=== PATIENT | female | born 1930 | race Caucasian/White ===

== ENCOUNTER 2017-03-29 11:10 | Inpatient (IN) | payer MEDICARE ==
[~2017-03-29] VITALS: Ht 167.6 cm; Wt 65.6 kg
[~2017-03-29 11:10] MED LIST: ASPI-1181 PO; ATOR10TA69 PO; BIOT5000 PO; CHOL50004 PO; CYAN250010 PO; FERR-82 PO; FLUT1AER IH; GLUC-114 PO; LEVO50TA6 PO; MELA5TAB14 PO; METO-408 PO; OLME40TA8 PO; TIOT4MIS2 IH; UBID200C18 PO; VITA400C25 PO
[2017-03-29 11:41] LABS: BASOPHILS % (AUTO) 0.4 % (0.0-5.0); EOSINOPHILS % (AUTO) 1.7 % (0.0-8.0); LYMPHOCYTES % (AUTO) 22.5 % (21.0-51.0); MEAN CORPUSCULAR HEMOGLOBIN 29.6 pg (27.0-33.0); MEAN CORPUSCULAR HGB CONC 33.4 g/dL (32.0-36.0); MEAN CORPUSCULAR VOLUME 88.7 fL (79-99); MONOCYTES % (AUTO) 9.9 % (3.0-13.0); NEUTROPHILS % (AUTO) 65.5 % (40.0-77.0); NUCLEATED RED BLOOD CELLS 0.1 % (0.0-0.19); PLATELET COUNT (AUTO) 216 K/uL (130-400); RED BLOOD CELL COUNT(AUTO) 4.74 MIL/uL (4.00-5.50); RED CELL DISTRIBUTION WIDTH 15.6 % (11.0-15.5); WHITE BLOOD COUNT (AUTO) 5.8 K/uL (4.8-10.8)
[2017-03-29 11:48] LABS: CREATININE 1.1 mg/dL (0.5-1.5); POTASSIUM 4.3 mmol/L (3.5-5.1)
[2017-03-29] MEDS ORDERED: SODIUM CHLORIDE 0.9% 1000ML 1,000 ML IV ONE ×3 (11:52→18:03)
[2017-03-29] MEDS ORDERED: ONDANSETRON HCL 4 MG/2 ML VIAL ONE (11:52)
[2017-03-29 11:56] LABS: INR 1.06 (0.85-1.15); PARTIAL THROMBOPLASTIN TIME 30.6 SEC (26.3-35.5); PROTHROMBIN TIME 11.1 SEC (9.6-11.6)
[2017-03-29 12:02] LABS: ALBUMIN 3.7 g/dL (3.5-5.0); BILIRUBIN,TOTAL 0.5 mg/dL (0.2-1.0); CREATINE KINASE MB 1.1 ng/mL (0.5-3.6); TOTAL PROTEIN, SERUM 6.5 g/dL (6.0-8.3)
[2017-03-29 12:06] LABS: B-TYPE NATRIURETIC PEPTIDE 45 pg/mL (0-100)
[2017-03-29 13:04] LABS: APPEARANCE,URINE Clear (CLEAR); BILIRUBIN,URINE Negative (NEGATIVE); COLOR,URINE Yellow (YELLOW); GLUCOSE, URINE (UA) Negative (NEGATIVE); KETONES,URINE Negative (NEGATIVE); LEUKOCYTE ESTERASE ,URINE Trace (NEGATIVE); NITRATE,URINE Negative (NEGATIVE); OCCULT BLOOD,URINE Negative (NEGATIVE); PROTEIN,URINE Trace (NEGATIVE); UROBILINOGEN,URINE 0.2 mg/dL (0.2-1.0)
[2017-03-29] MEDS ORDERED: CEFTRIAXONE SODIUM 1 GM ONE (13:09)
[2017-03-29] MEDS ORDERED: AZITHROMYCIN 500MG+NS 250ML 250 ML IV ONE (13:16)
[2017-03-29] MEDS ORDERED: IPRATROPIUM/ALBUTEROL SULFATE 3 ML SOLUTION IH ONE (13:37)
[2017-03-29 13:38] LABS: BACTERIA,URINE Rare /HPF (None Seen); MUCUS,URINE Rare LPF (None Seen); RBC,URINE None Seen /HPF (0-1); SQUAMOUS EPITHELIAL CELL,UR Few /LPF (0-2); WBC,URINE 0-1 /HPF (0-1)
[2017-03-29 18:30] VITALS: BP 164/73
[2017-03-29] MEDS ORDERED: SODIUM CHLORIDE 0.9% 1000ML 1,000 ML IV SCH (19:00)
[2017-03-29] MEDS ORDERED: LUTE20CA PO (21:25)
[2017-03-29] MEDS ORDERED: VIT1CAPS5 PO (21:25)
[2017-03-29] MEDS ORDERED: AMIO200T2 PO (21:25)
[2017-03-29] MEDS: IPRATROPIUM/ALBUTEROL SULFATE 3 ML SOLUTION IH SCH (22:02)
[2017-03-29] MEDS ORDERED: BENZONATATE 100 MG CAPSULE PO ONE (22:39)
[2017-03-29] MEDS: ACETAMINOPHEN 325 MG TAB PO PRN (22:42)
[2017-03-29] MEDS: BENZONATATE 100 MG CAPSULE PO PRN (23:27)
[2017-03-29 23:39] VITALS: BP 141/50
[2017-03-30] MEDS: IPRATROPIUM/ALBUTEROL SULFATE 3 ML SOLUTION IH SCH ×7 (02:30→21:59)
[2017-03-30] MEDS ORDERED: ACETAMINOPHEN 325 MG TAB PO PRN (03:45)
[2017-03-30] MEDS ORDERED: HYDRALAZINE HCL 20 MG/ML VIAL IV PRN (03:45)
[2017-03-30] MEDS ORDERED: AZITHROMYCIN 500MG+NS 250ML 250 ML IV SCH (03:45)
[2017-03-30] MEDS: SODIUM CHLORIDE 0.9% 1000ML 1,000 ML IV SCH ×3 (03:45→23:38)
[2017-03-30] MEDS ORDERED: CEFTRIAXONE 1GM/D5W 50ML 50 ML IV SCH (03:45)
[2017-03-30] MEDS ORDERED: GUAIFENESIN-CODEINE 5 ML SYRUP PO ONE (04:00)
[2017-03-30 04:23] VITALS: BP 118/45
[2017-03-30] MEDS ORDERED: APIX5TAB PO (07:07)
[2017-03-30] MEDS: LEVOTHYROXINE 50 MCG TABLET PO SCH (07:10)
[2017-03-30 08:05] VITALS: BP 134/56
[2017-03-30] MEDS ORDERED: LEVOTHYROXINE 50 MCG TABLET PO SCH (09:00)
[2017-03-30] MEDS: LUTEIN 20 MG PO SCH (09:00)
[2017-03-30] MEDS: **HM** CO Q-10 200MG PO SCH (09:00)
[2017-03-30] MEDS: **HM** TOPROL XL 25MG PO SCH ×2 (09:00→20:20)
[2017-03-30] MEDS: PANTOPRAZOLE SODIUM 40 MG TABLET.DR PO SCH (09:09)
[2017-03-30] MEDS: CEFTRIAXONE SODIUM 1 GM IVP SCH (09:09)
[2017-03-30] MEDS: LOSARTAN 100 MG TABLET PO SCH (09:09)
[2017-03-30] MEDS: AMIODARONE HCL 200 MG TABLET PO SCH (09:11)
[2017-03-30] MEDS: BENZONATATE 100 MG CAPSULE PO PRN ×2 (10:28→20:19)
[2017-03-30 11:59] VITALS: BP 133/52
[2017-03-30] MEDS: IPRATROPIUM 0.5 MG/2.5 ML INH IH SCH ×2 (12:00→16:44)
[2017-03-30] MEDS: AZITHROMYCIN 500MG+NS 250ML 250 ML IV SCH (12:43)
[2017-03-30] MEDS: GUAIFENESIN-DM 200/20 MG 10 ML PO PRN ×2 (14:08→20:18)
[2017-03-30] MEDS: BENZOCAINE/MENTH/CETYLPYRD CL 1 EACH LOZENGE MM PRN ×2 (15:24→21:33)
[2017-03-30 16:40] VITALS: BP 101/57
[2017-03-30] MEDS: LACTULOSE 20 GM/30 ML UDCUP PO PRN ×2 (17:30→23:37)
[2017-03-30 20:07] VITALS: BP 133/56
[2017-03-30] MEDS: FERROUS SULFATE 325 MG TABLET.DR PO SCH (20:19)
[2017-03-30] MEDS: ASPIRIN 81 MG EC TAB PO SCH (20:19)
[2017-03-30] MEDS: BREO ELLIPTA IH SCH (20:19)
[2017-03-30] MEDS: METOPROLOL TARTRATE 25 MG TAB PO SCH (20:19)
[2017-03-30] MEDS: ATORVASTATIN CALCIUM 10 MG TABLET PO SCH (20:19)
[2017-03-30] MEDS: **HM** MELATONIN 5MG PO SCH (20:20)
[2017-03-30] MEDS: ACETAMINOPHEN-CODEINE 300/30MG TAB PO PRN (21:38)
[2017-03-30] MEDS: ONDANSETRON HCL 4 MG/2 ML VIAL IV PRN (21:41)
[2017-03-30] MEDS ORDERED: ACETAMINOPHEN-CODEINE 300/30MG TAB PO PRN (23:30)
[2017-03-31] VITALS (8 sets, daily range): BP systolic 118–183; BP diastolic 52–86
[2017-03-31] MEDS: IPRATROPIUM/ALBUTEROL SULFATE 3 ML SOLUTION IH SCH ×6 (02:00→21:40)
[2017-03-31] MEDS: ONDANSETRON HCL 4 MG/2 ML VIAL IV PRN ×3 (04:27→21:49)
[2017-03-31] MEDS ORDERED: MORPHINE SULFATE 2 MG/ML 1ML SYG ONE (05:22)
[2017-03-31 05:28] LABS: BASOPHILS % (AUTO) 0.5 % (0.0-5.0); EOSINOPHILS % (AUTO) 2.1 % (0.0-8.0); LYMPHOCYTES % (AUTO) 26.4 % (21.0-51.0); MEAN CORPUSCULAR HEMOGLOBIN 30.3 pg (27.0-33.0); MEAN CORPUSCULAR VOLUME 89.4 fL (79-99); NUCLEATED RED BLOOD CELLS 0.1 % (0.0-0.19); PLATELET COUNT (AUTO) 199 K/uL (130-400); RED BLOOD CELL COUNT(AUTO) 3.91 MIL/uL (4.00-5.50); RED CELL DISTRIBUTION WIDTH 15.8 % (11.0-15.5)
[2017-03-31] MEDS ORDERED: MORPHINE SULFATE 2 MG/ML 1ML SYG IVP ONE (05:30)
[2017-03-31 05:44] LABS: CREATININE 0.8 mg/dL (0.5-1.5); POTASSIUM 3.5 mmol/L (3.5-5.1)
[2017-03-31] MEDS: IPRATROPIUM 0.5 MG/2.5 ML INH IH SCH ×4 (06:00→18:00)
[2017-03-31] MEDS: SODIUM CHLORIDE 0.9% 1000ML 1,000 ML IV SCH ×2 (06:25→15:45)
[2017-03-31] MEDS: LEVOTHYROXINE 50 MCG TABLET PO SCH ×2 (07:30→09:21)
[2017-03-31] MEDS: **HM** CO Q-10 200MG PO SCH (09:00)
[2017-03-31] MEDS: **HM** TOPROL XL 25MG PO SCH ×2 (09:00→19:36)
[2017-03-31] MEDS: LUTEIN 20 MG PO SCH (09:00)
[2017-03-31] MEDS: CEFTRIAXONE SODIUM 1 GM IVP SCH (09:20)
[2017-03-31] MEDS: LOSARTAN 100 MG TABLET PO SCH (09:21)
[2017-03-31] MEDS: AMIODARONE HCL 200 MG TABLET PO SCH (09:21)
[2017-03-31] MEDS: PANTOPRAZOLE SODIUM 40 MG TABLET.DR PO SCH (09:21)
[2017-03-31] MEDS: ACETAMINOPHEN-CODEINE 300/30MG TAB PO PRN ×2 (09:21→15:47)
[2017-03-31] MEDS: METOPROLOL TARTRATE 25 MG TAB PO SCH ×2 (09:21→19:34)
[2017-03-31] MEDS: AZITHROMYCIN 500MG+NS 250ML 250 ML IV SCH (11:55)
[2017-03-31] MEDS: GUAIFENESIN-DM 200/20 MG 10 ML PO PRN ×2 (11:55→18:45)
[2017-03-31] MEDS: BENZONATATE 100 MG CAPSULE PO PRN ×2 (13:36→23:10)
[2017-03-31] MEDS ORDERED: SODIUM CHLORIDE 45 ML SPRY NS PRN (14:45)
[2017-03-31] MEDS: ASPIRIN 81 MG EC TAB PO SCH (19:34)
[2017-03-31] MEDS: ATORVASTATIN CALCIUM 10 MG TABLET PO SCH (19:34)
[2017-03-31] MEDS: FERROUS SULFATE 325 MG TABLET.DR PO SCH (19:34)
[2017-03-31] MEDS: APIXABAN 5 MG TABLET PO SCH (19:34)
[2017-03-31] MEDS: BREO ELLIPTA IH SCH (19:35)
[2017-03-31] MEDS: ACETAMINOPHEN 325 MG TAB PO PRN (19:35)
[2017-03-31] MEDS: **HM** MELATONIN 5MG PO SCH (19:36)
[2017-04-01] MEDS: IPRATROPIUM/ALBUTEROL SULFATE 3 ML SOLUTION IH SCH ×6 (02:00→22:00)
[2017-04-01] MEDS: BENZOCAINE/MENTH/CETYLPYRD CL 1 EACH LOZENGE MM PRN (02:54)
[2017-04-01 03:00] VITALS: BP 142/63
[2017-04-01] MEDS: GUAIFENESIN-DM 200/20 MG 10 ML PO PRN ×2 (04:02→16:29)
[2017-04-01] MEDS: LEVOTHYROXINE 50 MCG TABLET PO SCH (05:50)
[2017-04-01] MEDS: SODIUM CHLORIDE 0.9% 1000ML 1,000 ML IV SCH ×2 (05:51→20:28)
[2017-04-01] MEDS: IPRATROPIUM 0.5 MG/2.5 ML INH IH SCH ×4 (06:00→18:00)
[2017-04-01] MEDS: ONDANSETRON HCL 4 MG/2 ML VIAL IV PRN (06:33)
[2017-04-01 08:19] VITALS: BP 171/69
[2017-04-01] MEDS: CEFTRIAXONE SODIUM 1 GM IVP SCH (08:34)
[2017-04-01] MEDS: LOSARTAN 100 MG TABLET PO SCH (08:35)
[2017-04-01] MEDS: CYANOCOBALAMIN (VITAMIN B-12) 1,000 MCG TABLET PO SCH (08:35)
[2017-04-01] MEDS: PANTOPRAZOLE SODIUM 40 MG TABLET.DR PO SCH (08:35)
[2017-04-01] MEDS: BENZONATATE 100 MG CAPSULE PO PRN (08:35)
[2017-04-01] MEDS: AMIODARONE HCL 200 MG TABLET PO SCH (08:36)
[2017-04-01] MEDS: **HM** CO Q-10 200MG PO SCH (08:36)
[2017-04-01] MEDS: METOPROLOL TARTRATE 25 MG TAB PO SCH ×2 (08:36→20:27)
[2017-04-01] MEDS: APIXABAN 5 MG TABLET PO SCH ×2 (08:36→20:27)
[2017-04-01] MEDS: [UNRECOGNIZED DRUG - OTHER] PO SCH (08:37)
[2017-04-01] MEDS: **HM** TOPROL XL 25MG PO SCH ×2 (08:37→20:28)
[2017-04-01] MEDS: PRESERVISION AREDS PO SCH (08:37)
[2017-04-01] MEDS: CHOLECALCIFEROL 5000 UNIT PO SCH (08:37)
[2017-04-01] MEDS: LUTEIN 20 MG PO SCH (08:37)
[2017-04-01] MEDS: BIOTIN 5000 MCG PO SCH (08:37)
[2017-04-01] MEDS: VITAMIN E 400 UNIT CAPSULE PO SCH (08:37)
[2017-04-01 11:29] VITALS: BP 157/67
[2017-04-01] MEDS: AZITHROMYCIN 500MG+NS 250ML 250 ML IV SCH (12:44)
[2017-04-01 15:15] VITALS: BP 134/59
[2017-04-01] MEDS: METOCLOPRAMIDE 10 MG/2 ML VIAL IVP SCH (16:29)
[2017-04-01] MEDS ORDERED: BENZONATATE 100 MG CAPSULE PO PRN (17:15)
[2017-04-01] MEDS: GUAIFENESIN-CODEINE 5 ML SYRUP PO PRN (17:39)
[2017-04-01] MEDS: METHYLPREDNISOLONE SOD SUCC 125MG/2ML VIAL IVP SCH ×2 (17:40→23:38)
[2017-04-01 19:00] VITALS: BP 145/54
[2017-04-01] MEDS: ASPIRIN 81 MG EC TAB PO SCH (20:26)
[2017-04-01] MEDS: FERROUS SULFATE 325 MG TABLET.DR PO SCH (20:26)
[2017-04-01] MEDS: BENZONATATE 100 MG CAPSULE PO SCH ×2 (20:27→20:38)
[2017-04-01] MEDS: ATORVASTATIN CALCIUM 10 MG TABLET PO SCH (20:27)
[2017-04-01] MEDS: **HM** MELATONIN 5MG PO SCH (20:28)
[2017-04-01] MEDS: BREO ELLIPTA IH SCH (20:28)
[2017-04-01 23:00] VITALS: BP 149/66
[2017-04-02] MEDS: IPRATROPIUM 0.5 MG/2.5 ML INH IH SCH
[2017-04-02] MEDS: BENZONATATE 100 MG CAPSULE PO SCH ×4 (01:11→17:17)
[2017-04-02] MEDS: GUAIFENESIN-CODEINE 5 ML SYRUP PO PRN ×2 (01:11→09:59)
[2017-04-02] MEDS: IPRATROPIUM/ALBUTEROL SULFATE 3 ML SOLUTION IH SCH ×4 (02:00→14:48)
[2017-04-02 03:00] VITALS: BP 121/60
[2017-04-02] MEDS: METHYLPREDNISOLONE SOD SUCC 125MG/2ML VIAL IVP SCH ×3 (06:13→17:17)
[2017-04-02] MEDS: LEVOTHYROXINE 50 MCG TABLET PO SCH (06:13)
[2017-04-02] MEDS: METOCLOPRAMIDE 10 MG/2 ML VIAL IVP SCH ×3 (06:13→17:17)
[2017-04-02 07:00] VITALS: BP 151/57
[2017-04-02] MEDS: LUTEIN 20 MG PO SCH (09:00)
[2017-04-02] MEDS: [UNRECOGNIZED DRUG - OTHER] PO SCH (09:00)
[2017-04-02] MEDS: **HM** CO Q-10 200MG PO SCH (09:00)
[2017-04-02] MEDS: PRESERVISION AREDS PO SCH (09:00)
[2017-04-02] MEDS: BIOTIN 5000 MCG PO SCH (09:00)
[2017-04-02] MEDS: CHOLECALCIFEROL 5000 UNIT PO SCH (09:00)
[2017-04-02] MEDS: VITAMIN E 400 UNIT CAPSULE PO SCH (09:25)
[2017-04-02] MEDS: CYANOCOBALAMIN (VITAMIN B-12) 1,000 MCG TABLET PO SCH (09:25)
[2017-04-02] MEDS: APIXABAN 5 MG TABLET PO SCH (09:26)
[2017-04-02] MEDS: PANTOPRAZOLE SODIUM 40 MG TABLET.DR PO SCH (09:26)
[2017-04-02] MEDS: LOSARTAN 100 MG TABLET PO SCH (09:27)
[2017-04-02] MEDS: METOPROLOL TARTRATE 25 MG TAB PO SCH (09:27)
[2017-04-02] MEDS: CEFTRIAXONE SODIUM 1 GM IVP SCH (09:28)
[2017-04-02] MEDS ORDERED: SODIUM CHLORIDE 0.9% 1000ML 1,000 ML IV ONE (09:31)
[2017-04-02] MEDS: AMIODARONE HCL 200 MG TABLET PO SCH (09:40)
[2017-04-02] MEDS: SODIUM CHLORIDE 0.9% 1000ML 1,000 ML IV SCH (09:43)
[2017-04-02 11:00] VITALS: BP 126/51
[2017-04-02] MEDS: AZITHROMYCIN 500MG+NS 250ML 250 ML IV SCH (12:28)
[2017-04-02 16:00] VITALS: BP 132/58
== END 2017-04-02 19:13 | disposition home or self-care (01) | DRG 190 ==
LOC: EDH 11:10 → EDHIP 13:30 → 4CH 18:24
PROVIDERS: ADMIT Family Medicine; ATTEND Family Medicine
DX: J44.0 Chronic obstructive pulmonary disease with (acute) lower respiratory infection (principal); J18.9 Pneumonia, unspecified organism; E87.2 Acidosis; E86.0 Dehydration; R06.03 Acute respiratory distress; Z95.1 Presence of aortocoronary bypass graft; J44.1 Chronic obstructive pulmonary disease with (acute) exacerbation; I25.10 Atherosclerotic heart disease of native coronary artery without angina pectoris; I10 Essential (primary) hypertension; J20.9 Acute bronchitis, unspecified; Z98.49 Cataract extraction status, unspecified eye; Z90.49 Acquired absence of other specified parts of digestive tract; Z88.8 Allergy status to other drugs, medicaments and biological substances
CPT/HCPCS: 36415; 71045; 71250; 80048; 80053; 81001; 82550; 82553; 83605; 83880; 84484; 85025; 85610; 85730; 87040; 87798; 87804; 93005; 94640; 94664; 94760; A4218; J0456; J0696; J2405; J2765; J2930; J7030

== ENCOUNTER → 2017-09-16 | Outpatient (CLI) | payer MEDICARE ==
[~2017-09-16] MED LIST changes: +AMIO200T5 PO; +APIX5TAB PO; +LUTE20CA PO; +VIT1CAPS5 PO
== END | disposition home or self-care (01) ==
LOC: SLP 20:11
PROVIDERS: ATTEND Internal Medicine Cardiovascular Disease
DX: G47.33 Obstructive sleep apnea (adult) (pediatric) (principal)
CPT/HCPCS: 95810

== ENCOUNTER → 2017-11-21 | Outpatient (CLI) | payer MEDICARE | END | disposition home or self-care (01) | LOC: SHCH 14:08 | PROVIDERS: ATTEND Internal Medicine Cardiovascular Disease | DX: I73.9 Peripheral vascular disease, unspecified (principal); I87.2 Venous insufficiency (chronic) (peripheral) | CPT/HCPCS: 93925; 93970 ==

== ENCOUNTER 2018-03-16 21:25 | Inpatient (IN) | payer MEDICARE | END 2018-03-20 20:53 | LOC: EDH 21:25 → EDHIP 03-17 01:09 → 4AH 03-17 14:15 → 4BH 03-17 15:16 | DX: S62.102A Fracture of unspecified carpal bone, left wrist, initial encounter for closed fracture (principal); M48.56XA Collapsed vertebra, not elsewhere classified, lumbar region, initial encounter for fracture; M54.16 Radiculopathy, lumbar region; M54.5 Low back pain; W19.XXXA Unspecified fall, initial encounter; I10 Essential (primary) hypertension; E03.9 Hypothyroidism, unspecified; D89.9 Disorder involving the immune mechanism, unspecified; E11.9 Type 2 diabetes mellitus without complications; D69.6 Thrombocytopenia, unspecified ==

== ENCOUNTER 2018-05-19 05:49 | Day surgery (SDC) | payer MEDICARE ==
[2018-05-15 12:15] VITALS: BP 144/54
[2018-05-15 12:35] LABS: BASOPHILS % (AUTO) 0.6 % (0.0-5.0); EOSINOPHILS % (AUTO) 1.6 % (0.0-8.0); HEMATOCRIT 38.4 % (36-48); LYMPHOCYTES % (AUTO) 34.1 % (21.0-51.0); MEAN CORPUSCULAR HEMOGLOBIN 30.2 pg (27.0-33.0); MEAN CORPUSCULAR HGB CONC 33.1 g/dL (32.0-36.0); MEAN CORPUSCULAR VOLUME 91.5 fL (79-99); MONOCYTES % (AUTO) 8.2 % (3.0-13.0); NEUTROPHILS % (AUTO) 55.5 % (40.0-77.0); PLATELET COUNT (AUTO) 249 K/uL (130-400); RED CELL DISTRIBUTION WIDTH 15.6 % (11.0-15.5); WHITE BLOOD COUNT (AUTO) 9.5 K/uL (4.8-10.8)
[2018-05-15 12:44] LABS: CREATININE 0.9 mg/dL (0.5-1.5); POTASSIUM 4.3 mmol/L (3.5-5.1)
--- NOTE | 2018-05-18 12:57 | NUR ---
EKG EKG RESULT SHOWED TO DR. BECK, ANESTHESIA. NO FURTHER ORDERS GIVEN, MAY PROCEED WITH PLANNED PROCEDURE. ALSO NOTIFIED DR. PANDYA.
[2018-05-19] VITALS (18 sets, daily range): BP systolic 110–148; BP diastolic 48–85
[~2018-05-19] VITALS: Ht 168.9 cm; Wt 60.8 kg
[~2018-05-19 05:49] MED LIST changes: -AMIO200T5 PO; -APIX5TAB PO; +ASCO10007 PO; -ATOR10TA69 PO; +CALC3.8S NS; +CALCIUM PO; -FERR-82 PO; +IRON PO; +LEVO25TA9 PO; -LUTE20CA PO
[2018-05-19] MEDS ORDERED: LACTATED RINGERS 1000ML 1,000 ML IV ONE (06:02)
[2018-05-19] MEDS ORDERED: CEFAZOLIN SODIUM 1 GM VIAL ONE (06:04)
[2018-05-19] MEDS ORDERED: CEPH500B PO (06:30)
[2018-05-19] MEDS: CEFAZOLIN SODIUM 1 GM VIAL IVP PRN ×2 (06:38→07:35)
[2018-05-19] MEDS ORDERED: ONDANSETRON HCL 4 MG/2 ML VIAL ONE (06:55)
[2018-05-19] MEDS ORDERED: PROPOFOL 10 MG/ML 20ML VIAL IV ONE (06:55)
[2018-05-19] MEDS ORDERED: MIDAZOLAM HCL 1 MG/ML 2ML VIAL ONE (06:55)
[2018-05-19] MEDS ORDERED: DEXAMETHASONE SOD PHOSPHATE 10MG/ML 1ML VIAL ONE (06:55)
[2018-05-19] MEDS ORDERED: LIDOCAINE PF 2% 5ML ABBOJECT ONE (06:55)
[2018-05-19] MEDS ORDERED: FENTANYL CITRATE PF 50 MCG/1 ML 2ML VIAL ONE (06:56)
[2018-05-19] MEDS ORDERED: BUPIVACAINE/EPI/PF 0.25% 50 ML VIAL IJ ONE (07:46)
== END 2018-05-19 13:55 | disposition home or self-care (01) ==
LOC: DAH 05:49
PROVIDERS: ATTEND Neurological Surgery
DX: S32.048A Other fracture of fourth lumbar vertebra, initial encounter for closed fracture (principal); X58.XXXA Exposure to other specified factors, initial encounter; Y93.9 Activity, unspecified; Y92.89 Other specified places as the place of occurrence of the external cause; Y99.9 Unspecified external cause status; M54.5 Low back pain; M48.00 Spinal stenosis, site unspecified; Z98.890 Other specified postprocedural states; M85.80 Other specified disorders of bone density and structure, unspecified site; Z79.899 Other long term (current) drug therapy; J44.9 Chronic obstructive pulmonary disease, unspecified; Z95.1 Presence of aortocoronary bypass graft; I25.10 Atherosclerotic heart disease of native coronary artery without angina pectoris; I42.9 Cardiomyopathy, unspecified
CPT/HCPCS: 22511; 36415; 71045; 72110; 80048; 85025; 93005; A4215; A4218; C1776; J0690; J1100; J2001; J2250; J2405; J2704; J3010; J3490; J7120; 77001; 77002

== ENCOUNTER → 2018-11-17 | Outpatient (CLI) | payer MEDICARE ==
[~2018-11-17] MED LIST changes: +CEPH500B PO; +IOHEXOL 350 MG/ML 100ML INFUS..BTL IV ONE
== END | disposition home or self-care (01) ==
LOC: RAH 09:19
PROVIDERS: ATTEND Urology
DX: K76.0 Fatty (change of) liver, not elsewhere classified (principal); N28.1 Cyst of kidney, acquired; K57.30 Diverticulosis of large intestine without perforation or abscess without bleeding; N34.2 Other urethritis; Z90.49 Acquired absence of other specified parts of digestive tract
CPT/HCPCS: 74178; Q9967

== ENCOUNTER → 2019-03-02 | Outpatient (CLI) | payer MEDICARE ==
[~2019-03-02] MED LIST changes: -IOHEXOL 350 MG/ML 100ML INFUS..BTL IV ONE
== END | disposition home or self-care (01) ==
LOC: SHCH 08:27
PROVIDERS: ATTEND Internal Medicine Cardiovascular Disease
DX: I65.23 Occlusion and stenosis of bilateral carotid arteries (principal)
CPT/HCPCS: 93880

== ENCOUNTER → 2019-10-01 | Outpatient (CLI) | payer MEDICARE ==
[~2019-10-01] MED LIST changes: +ASCO100031 PO; -ASCO10007 PO; -ASPI-1181 PO; +ASPI-1443 PO
== END | disposition home or self-care (01) ==
LOC: SHCH 08:20
PROVIDERS: ATTEND Internal Medicine Cardiovascular Disease
DX: I08.3 Combined rheumatic disorders of mitral, aortic and tricuspid valves (principal); I10 Essential (primary) hypertension
CPT/HCPCS: 93306; 93356

== ENCOUNTER → 2019-10-07 | Outpatient (CLI) | payer MEDICARE ==
[~2019-10-07] MED LIST changes: +REGADENOSON 0.4 MG/5 ML PF SYG IVP ONE; +REGADENOSON 0.4 MG/5 ML PF SYG IVP SCH
== END | disposition home or self-care (01) ==
LOC: SHCH 08:06
PROVIDERS: ATTEND Internal Medicine Cardiovascular Disease
DX: I10 Essential (primary) hypertension (principal); I25.10 Atherosclerotic heart disease of native coronary artery without angina pectoris
CPT/HCPCS: 78452; 93017; 96374; A9500 ×2; J2785

== ENCOUNTER → 2020-03-23 | Outpatient (CLI) | payer MEDICARE ==
[~2020-03-23] MED LIST changes: -REGADENOSON 0.4 MG/5 ML PF SYG IVP ONE; -REGADENOSON 0.4 MG/5 ML PF SYG IVP SCH
[2020-03-23 10:40] LABS: BILIRUBIN,URINE Negative (NEGATIVE); COLOR,URINE Yellow (YELLOW); GLUCOSE, URINE (UA) Negative (NEGATIVE); KETONES,URINE Negative (NEGATIVE); LEUKOCYTE ESTERASE ,URINE Small (NEGATIVE); NITRATE,URINE Negative (NEGATIVE); OCCULT BLOOD,URINE Negative (NEGATIVE); PROTEIN,URINE Negative (NEGATIVE); UROBILINOGEN,URINE 0.2 mg/dL (0.2-1.0)
[2020-03-23 10:41] LABS: BASOPHILS % (AUTO) 0.7 % (0.0-5.0); EOSINOPHILS % (AUTO) 5.7 % (0.0-8.0); HEMATOCRIT 39.8 % (36-48); LYMPHOCYTES % (AUTO) 28.7 % (21.0-51.0); MEAN CORPUSCULAR HGB CONC 32.7 g/dL (32.0-36.0); MEAN CORPUSCULAR VOLUME 94.8 fL (79-99); MONOCYTES % (AUTO) 7.5 % (3.0-13.0); NEUTROPHILS % (AUTO) 56.9 % (40.0-77.0); PLATELET COUNT (AUTO) 240 K/uL (130-400); RED CELL DISTRIBUTION WIDTH 12.9 % (11.0-15.5); WHITE BLOOD COUNT (AUTO) 6.1 K/uL (4.8-10.8)
[2020-03-23 10:46] LABS: APPEARANCE,URINE CLEAR (CLEAR)
[2020-03-23 10:53] LABS: CREATININE 0.9 mg/dL (0.5-1.5)
[2020-03-23 10:59] LABS: INR 1.12 (0.85-1.15); PROTHROMBIN TIME 11.9 SEC (9.6-11.6)
[2020-03-23 11:00] LABS: PARTIAL THROMBOPLASTIN TIME 27.3 SEC (26.3-35.5)
[2020-03-23 11:19] LABS: BACTERIA,URINE Rare /HPF (None Seen); RBC,URINE 0-1 /HPF (0-1); SQUAMOUS EPITHELIAL CELL,UR Rare /HPF (0-2)
== END ==
LOC: EDSTATUS 09:00 → DAH 10:00
PROVIDERS: ATTEND Internal Medicine Cardiovascular Disease
DX: Z01.818 Encounter for other preprocedural examination (principal); I25.10 Atherosclerotic heart disease of native coronary artery without angina pectoris; Z79.01 Long term (current) use of anticoagulants; Z79.899 Other long term (current) drug therapy
CPT/HCPCS: 36415; 71045; 80048; 81001; 85025; 85610; 85730; 87088; 93005

== ENCOUNTER 2020-05-02 07:43 | Day surgery (SDC) | payer MEDICARE ==
[2020-04-28 10:36] LABS: BASOPHILS % (AUTO) 0.6 % (0.0-5.0); HEMATOCRIT 40.1 % (36-48); LYMPHOCYTES % (AUTO) 27.7 % (21.0-51.0); MEAN CORPUSCULAR HEMOGLOBIN 30.3 pg (27.0-33.0); MEAN CORPUSCULAR HGB CONC 32.2 g/dL (32.0-36.0); MEAN CORPUSCULAR VOLUME 94.1 fL (79-99); MONOCYTES % (AUTO) 7.2 % (3.0-13.0); NEUTROPHILS % (AUTO) 51.1 % (40.0-77.0); PLATELET COUNT (AUTO) 205 K/uL (130-400); RED BLOOD CELL COUNT(AUTO) 4.26 MIL/uL (4.00-5.50); WHITE BLOOD COUNT (AUTO) 6.8 K/uL (4.8-10.8)
[2020-04-28 10:44] LABS: POTASSIUM 4.3 mmol/L (3.5-5.1)
[2020-04-28 10:47] LABS: INR 1.1 (0.85-1.15); PROTHROMBIN TIME 11.9 SEC (9.6-11.6)
[2020-04-28 10:49] LABS: PARTIAL THROMBOPLASTIN TIME 27.8 SEC (26.3-35.5)
[2020-04-28 10:50] LABS: APPEARANCE,URINE Clear (CLEAR); BILIRUBIN,URINE Negative (NEGATIVE); COLOR,URINE Yellow (YELLOW); GLUCOSE, URINE (UA) Negative (NEGATIVE); KETONES,URINE Negative (NEGATIVE); LEUKOCYTE ESTERASE ,URINE Moderate (NEGATIVE); NITRATE,URINE Negative (NEGATIVE); OCCULT BLOOD,URINE Negative (NEGATIVE); PROTEIN,URINE Negative (NEGATIVE); UROBILINOGEN,URINE 0.2 mg/dL (0.2-1.0)
[2020-04-28 11:30] LABS: BACTERIA,URINE Rare /HPF (None Seen); RBC,URINE 0-1 /HPF (0-1); WBC,URINE 0-1 /HPF (0-1)
[2020-04-28 11:31] LABS: SQUAMOUS EPITHELIAL CELL,UR 0-2 /HPF (0-2)
[2020-05-01 13:31] VITALS: BP 198/97
[2020-05-02] VITALS (10 sets, daily range): BP systolic 118–187; BP diastolic 46–79
[~2020-05-02] VITALS: Ht 168.9 cm; Wt 66.2 kg
[~2020-05-02 07:43] MED LIST changes: +ACETAMINOPHEN 325 MG TAB PO PRN; -ASCO100031 PO; +ASCO1TAB46 PO; +ATOR20TA65 PO; +BIOT10004 PO; -BIOT5000 PO; +CA C-5 PO; -CALC3.8S NS; -CALCIUM PO; -CEPH500B PO; -CHOL50004 PO; -CYAN250010 PO; +CYAN50008 PO; +FLAXSEED PO; -GLUC-114 PO; +HYDR-3830 PO; -LEVO25TA9 PO; +LOSA100T58 PO; -MELA5TAB14 PO; +MVIT PO; -OLME40TA8 PO; +SODIUM CHLORIDE 0.9% 500ML 500 ML IV SCH; +TERI2.4P SQ; +TURM538C PO; +UBID1CAP56 PO; -UBID200C18 PO; +VITAMIN D3 PO
[2020-05-02] MEDS: SODIUM CHLORIDE 0.9% 1000ML 1,000 ML IV ONE (08:32)
[2020-05-02] MEDS ORDERED: NITROGLYCERIN 2 MG/VIAL VIAL IV ONE (10:22)
[2020-05-02] MEDS ORDERED: SODIUM BICARB 50MEQ 50ML VIAL 50 ML ONE (10:22)
[2020-05-02] MEDS ORDERED: IOHEXOL 350 MG/ML 100ML INFUS..BTL IV ONE (10:22)
[2020-05-02] MEDS ORDERED: HEPARIN SODIUM 1000UNIT/ML 10ML VIAL ONE (10:22)
[2020-05-02] MEDS ORDERED: LIDOCAINE HCL 2% 20ML ONE (10:22)
[2020-05-02] MEDS ORDERED: IOHEXOL-350 75 ML VIAL IV ONE (10:22)
[2020-05-02] MEDS ORDERED: IOHEXOL-350 50ML VIAL IV ONE (10:22)
[2020-05-02] MEDS ORDERED: MEPERIDINE-PF 25 MG/ML SYG ONE (10:26)
[2020-05-02] MEDS ORDERED: MIDAZOLAM HCL 1 MG/ML 2ML VIAL ONE (10:27)
[2020-05-02] MEDS ORDERED: LABETALOL HCL 5 MG/ML 20ML VIAL IV ONE ×2 (10:33→11:28)
[2020-05-02] MEDS ORDERED: ADENOSINE 90MG/30ML VIAL IV ONE (11:11)
[2020-05-02] MEDS ORDERED: SODIUM CHLORIDE 0.9% 1000ML 1,000 ML IV SCH (11:30)
[2020-05-02] MEDS ORDERED: KETOROLAC TROMETHAMINE 15MG/ML IV SCH (14:07)
[2020-05-02] MEDS ORDERED: ACETAMINOPHEN-CODEINE 300/30MG TAB PO PRN (14:15)
== END 2020-05-02 17:00 | disposition home or self-care (01) ==
LOC: DAH 07:43
PROVIDERS: ATTEND Internal Medicine Cardiovascular Disease
DX: I25.118 Atherosclerotic heart disease of native coronary artery with other forms of angina pectoris (principal); I25.82 Chronic total occlusion of coronary artery; I10 Essential (primary) hypertension; E03.9 Hypothyroidism, unspecified; E78.5 Hyperlipidemia, unspecified; I48.91 Unspecified atrial fibrillation; J44.9 Chronic obstructive pulmonary disease, unspecified; Z95.1 Presence of aortocoronary bypass graft; Z79.82 Long term (current) use of aspirin; Z79.84 Long term (current) use of oral hypoglycemic drugs; Z79.899 Other long term (current) drug therapy; Z95.5 Presence of coronary angioplasty implant and graft; Z90.49 Acquired absence of other specified parts of digestive tract; Z98.890 Other specified postprocedural states; Z90.710 Acquired absence of both cervix and uterus; Z90.89 Acquired absence of other organs; Z98.49 Cataract extraction status, unspecified eye; Z82.49 Family history of ischemic heart disease and other diseases of the circulatory system; Z87.891 Personal history of nicotine dependence; Z79.01 Long term (current) use of anticoagulants
CPT/HCPCS: 36415; 71045; 80048; 81001; 85025; 85610; 85730; 87088; 93005; 93459; 93571; A4215; A4216; A4221; A4222; A4223 ×3; A4606; A4663; C1760; C1769 ×2; C1887; C1894; J0153; J1644 ×2; J2175; J2250; J3490 ×4; J7030; Q9965; Q9967 ×3; 96360; 96361; 99156; 99157

== ENCOUNTER → 2020-06-27 | Outpatient (CLI) | payer MEDICARE ==
[~2020-06-27] MED LIST changes: -ACETAMINOPHEN 325 MG TAB PO PRN; -SODIUM CHLORIDE 0.9% 500ML 500 ML IV SCH
== END | disposition home or self-care (01) ==
LOC: RAH 07:23
PROVIDERS: ATTEND Family Medicine
DX: M48.56XA Collapsed vertebra, not elsewhere classified, lumbar region, initial encounter for fracture (principal); M51.26 Other intervertebral disc displacement, lumbar region; G96.191 Perineural cyst; X58.XXXA Exposure to other specified factors, initial encounter; Y93.89 Activity, other specified; Y92.89 Other specified places as the place of occurrence of the external cause; Y99.8 Other external cause status
CPT/HCPCS: 72148